=== PATIENT | female | born 1955 | race Caucasian/White ===

== ENCOUNTER 2019-03-06 06:59 | Day surgery (SDC) | payer OTHER ==
[~2019-03-06] VITALS: Ht 152.4 cm; Wt 90.7 kg
[2019-03-06] MEDS ORDERED: LIDOCAINE 2% 100 MG/5 ML UJET TP ONE (08:53)
[2019-03-06] MEDS ORDERED: fentaNYL 0.05 MG/ML VIAL ONE (08:53)
[2019-03-06] MEDS ORDERED: fentaNYL 0.05 MG/ML VIAL IVP ONE (09:45)
== END 2019-03-06 09:53 | disposition home or self-care (01) ==
LOC: MMU 06:59 → MDS 06:59
PROVIDERS: ATTEND Internal Medicine Gastroenterology
DX: D12.1 Benign neoplasm of appendix (principal); D12.2 Benign neoplasm of ascending colon; K57.30 Diverticulosis of large intestine without perforation or abscess without bleeding; E66.9 Obesity, unspecified; I10 Essential (primary) hypertension; E78.00 Pure hypercholesterolemia, unspecified; J45.909 Unspecified asthma, uncomplicated; E11.40 Type 2 diabetes mellitus with diabetic neuropathy, unspecified; Z68.39 Body mass index [BMI] 39.0-39.9, adult; Z79.4 Long term (current) use of insulin; Z79.899 Other long term (current) drug therapy; Z87.891 Personal history of nicotine dependence
CPT/HCPCS: 45385; J3010